=== PATIENT | female | born 1955 | race Caucasian/White ===

== ENCOUNTER 2024-06-09 06:55 | Outpatient (CLI) | payer MEDICARE, OTHER, SELFPAY ==
--- NOTE | 2024-06-09 07:03 | CT_ITS ---
WS: [id number] CT chest wo con [id number] HISTORY: FIBROSIS OF LUNG TECHNIQUE: Axial imaging performed through the thorax. Coronal and sagittal reformats are submitted. All CT scans at [facility] use at least one of these dose optimization techniques: automated exposure control; mA and/or kV adjustment per patient size (includes targeted exams where dose is matched to clinical indication); or iterative reconstruction. CONTRAST: None DLP: 255.42 mGy.cm COMPARISON: Radiograph 05/04/2024 Lungs and central airway: Lung volumes are decreased. Bilateral, upper and lower lobe areas of prominent reticulation and interstitial thickening. Interstitial fibrotic changes with honeycombing and bronchiectasis in the upper and lower lung adler. No mass. Pleura: Normal. No pleural effusion. Heart and pericardium: Normal size heart with no pericardial effusion. Mediastinum and ricardo: No mediastinum or hilar adenopathy. Vessels: Mild atherosclerosis aorta. No dilatation of the aorta. Dilated pulmonary artery to 3.2 cm. Rapid tapering of the pulmonary arteries. Chest wall and lower neck: No soft tissue masses. Upper abdomen: Splenic artery calcifications. Visualized adrenal glands are negative. There are a few colonic diverticula noted in the transverse and splenic flexure. Osseous structures: No destructive bone lesions. CT/CT chest wo con [id number] IMPRESSION: 1. Low lung volumes with changes of honeycombing and bronchiectasis. Consisten t with pulmonary fibrosis, consider UIP. 2. No pneumonia. 3. No adenopathy. 4. Pulmonary hypertension.
[2024-06-09 07:34] VITALS: PULSE 74; RESP 18; O2SAT 97
[2024-06-09] MEDS: albuterol 2.5 mg/3 mL Neb INHALATION (07:34)
== END 2024-06-09 06:56 | disposition home or self-care (01) ==
PROVIDERS: PCP Family Medicine; Visit Provider Family Medicine
DX: J44.9 Chronic obstructive pulmonary disease, unspecified (principal); J84.10 Pulmonary fibrosis, unspecified; R94.2 Abnormal results of pulmonary function studies; R91.8 Other nonspecific abnormal finding of lung field; J47.9 Bronchiectasis, uncomplicated; I27.20 Pulmonary hypertension, unspecified; I70.0 Atherosclerosis of aorta; I28.1 Aneurysm of pulmonary artery; I70.8 Atherosclerosis of other arteries; K57.30 Diverticulosis of large intestine without perforation or abscess without bleeding
CPT/HCPCS: 71250; 94060; 94729; J7613

== ENCOUNTER 2024-07-20 09:28 | Outpatient (CLI) | payer MEDICARE, OTHER, SELFPAY ==
[2024-07-23 10:58] LABS: Quantiferon Mitogen 9.66 IU/mL; Quantiferon Nil 0.02 IU/mL; Quantiferon TB Gold NEGATIVE (NEGATIVE)
== END 2024-07-20 09:29 | disposition home or self-care (01) ==
PROVIDERS: PCP Family Medicine; Visit Provider Family Medicine
DX: J84.10 Pulmonary fibrosis, unspecified (principal)
CPT/HCPCS: 36415; 86480

== ENCOUNTER → 2024-10-21 08:55 | Outpatient (BNVA) | payer MEDICARE, OTHER, SELFPAY | PROVIDERS: PCP Family Medicine; Referring Provider Family Medicine; Visit Provider Internal Medicine Rheumatology | DX: J84.9 Interstitial pulmonary disease, unspecified (principal); R76.8 Other specified abnormal immunological findings in serum; Z79.899 Other long term (current) drug therapy; Z71.85 Encounter for immunization safety counseling; J44.9 Chronic obstructive pulmonary disease, unspecified; Z79.52 Long term (current) use of systemic steroids; Z87.891 Personal history of nicotine dependence; M25.50 Pain in unspecified joint | CPT/HCPCS: 36415; 80076; 82565; 85025; 85651; 86140; 86704; 86803; 87340; 99205 ==

== ENCOUNTER 2024-12-03 10:25 | Outpatient (CLI) | payer MEDICARE, OTHER, SELFPAY ==
[2024-12-03 10:47] LABS: Hematocrit 40.6 % (36-47); Hemoglobin 13.20 g/dL (11.27-16.99); Mean Corpuscular HGB Conc 32.5 g/dL (30-55); Mean Corpuscular Hemoglobin 28.5 pg (27-33); Mean Corpuscular Volume 87.7 fl (85-98); Nucleated Red Blood Cells % 0 %; Platelet Count 331 10^3/cmm (157-399); Red Blood Count 4.63 10^6/uL (3.85-5.65); White Blood Count 8.74 10^3/uL (3.29-11.43)
[2024-12-03 11:15] LABS: Alanine Aminotransferase 18 U/L (0-33); Albumin Level 4.6 g/dL (3.5-5.2); Alkaline Phosphatase 87 U/L (35-105); Globulin 3.6 g/dL (1.3-4.6); Total Protein 8.2 g/dL (6.6-8.7)
[2024-12-03 11:18] LABS: Aspartate Amino Transferase 21 U/L (0-32)
== END 2024-12-03 10:26 | disposition home or self-care (01) ==
LOC: LAB 10:27
PROVIDERS: PCP Family Medicine; Visit Provider Internal Medicine Rheumatology
DX: Z79.899 Other long term (current) drug therapy (principal)
CPT/HCPCS: 36415; 80076; 82565; 85025; 85651; 86140